=== PATIENT | female | born 1950 | race Caucasian/White ===

== ENCOUNTER → 2020-01-20 | Day surgery (SDC) | payer MEDICARE, MEDICAID ==
[~2020-01-20] MED LIST: IOHEXOL-300 100 ML BOTTLE ONE
== END | disposition home or self-care (01) ==
LOC: CT 09:33
PROVIDERS: ATTEND Internal Medicine Cardiovascular Disease
DX: M47.812 Spondylosis without myelopathy or radiculopathy, cervical region (principal); Z79.899 Other long term (current) drug therapy
CPT/HCPCS: 70491; Q9967